=== PATIENT | female | born 1995 | race Caucasian/White ===

== ENCOUNTER 2021-09-06 06:40 | Emergency (ER) | payer SELFPAY ==
[~2021-09-06] VITALS: Ht 154.9 cm; Wt 50.0 kg
[~2021-09-06 06:40] MED LIST: AMOXICILLIN500 MG OR; AMOXICILLIN875 MG OR; AUGMENTIN PO; CONCEPT OB PO; FLUTICASONE50 MCG; FLUZONE SPLT1 M1 IM; KEFLEX500 MG PO; MACROBID100 MG PO; NO HOME MEDS; PROMETH/COD1 ML OR; TRIAMCINOLON0.5 % EX; TUBERSOL5 MG/0.1 M ID; ZPAK OR
[2021-09-06] MEDS ORDERED: BENADRYL ALLERG25 MG PO (08:15)
[2021-09-06] MEDS ORDERED: BENADRY2 EX (08:15)
[2021-09-06] MEDS ORDERED: MEDDOSEPAK PO (08:15)
== END 2021-09-06 08:35 | disposition home or self-care (01) | DRG 918 ==
LOC: ED 06:40
DX: T65.91XA Toxic effect of unspecified substance, accidental (unintentional), initial encounter (principal); T78.3XXA Angioneurotic edema, initial encounter; L24.5 Irritant contact dermatitis due to other chemical products